=== PATIENT | male | born 1975 | race American Indian/Alaskan Native ===

== ENCOUNTER 2021-05-15 10:56 | Outpatient (CLI) | payer OTHER ==
--- NOTE | 2021-05-15 15:43 | Ultrasound Report ---
ULTRASOUND RENAL INDICATION / CLINICAL INFORMATION: CKD. COMPARISON: None available. FINDINGS: RIGHT KIDNEY: Length = 11.4 cm. - Echogenicity: Normal. - Cortical Thickness: Normal. - Hydronephrosis: None. - Cyst / Mass: None. - Stones: None seen. LEFT KIDNEY: Length = 11.8 cm. - Echogenicity: Normal. - Cortical Thickness: Normal. - Hydronephrosis: None. - Cyst / Mass: None. - Stones: None seen. URINARY BLADDER: No significant abnormality. FREE FLUID: None. ADDITIONAL FINDINGS: None. IMPRESSION: 1. No significant sonographic abnormality. Scribed by: Nadia Pino RDMS, RVT Scribed: 05/15/2021 11:24 AM I have reviewed the images, agree with this report, and edited this report as needed. Signer Name: Villa Day MD Signed: 05/15/2021 3:39 PM Workstation Name: [id number]
== END 2021-05-15 10:57 | disposition home or self-care (01) ==
LOC: US 10:56
PROVIDERS: ATTEND Internal Medicine
DX: N18.9 Chronic kidney disease, unspecified (principal)
CPT/HCPCS: 76770